=== PATIENT | female | born 1970 | race Caucasian/White ===

== ENCOUNTER 2016-12-08 19:23 | Emergency (ER) | payer MEDICAID ==
[2016-12-08 19:59] LABS: RBC URINE 6 /hpf (0-3); TRANSITIONAL EPITHIAL < 1 /hpf (0-3); URINE BACTERIA RARE (<OCC); URINE BILIRUBIN NEGATIVE (NEGATIVE); URINE BLOOD 1+ (NEGATIVE); URINE COLOR Yellow (YELLOW); URINE GLUCOSE (UA) NORMAL (Normal); URINE KETONE NEGATIVE (NEGATIVE); URINE LEUKOCYTE ESTERASE NEG Leu/uL (Negative); URINE PROTEIN NEGATIVE (NEGATIVE); URINE UROBILINOGEN NORMAL mg/dL (0.2-1.0); WBC URINE 2 /hpf (0-5)
[2016-12-08] MEDS ORDERED: Sodium Chloride 0.9% 1,000 ML IV ONE ×2 (19:59→23:41)
[2016-12-08] MEDS ORDERED: Sodium Chloride 0.9% 1,000 ML ONE ×2 (20:11→23:41)
[2016-12-08] MEDS ORDERED: Morphine 4 MG/ML VIAL ONE (20:12)
[2016-12-08 20:16] LABS: BASO % 0.5 % (0.0-2.0); EOS % 0.4 % (0.0-4.0); HEMATOCRIT 38.1 % (34.0-47.0); LYMPH # 1.7 K/uL (1.0-4.3); LYMPH % 41.7 % (20.0-40.0); MEAN CELL VOLUME 89.4 fL (81.0-99.0); MEAN CORPUSCULAR HEMOGLOBIN 29.7 pg (27.0-31.0); MEAN CORPUSCULAR HGB CONC 33.2 g/dL (33.0-37.0); MEAN PLATELET VOLUME 10.3 fL (7.2-11.7); MONO # 0.4 K/uL (0.0-0.8); MONO % 9.6 % (0.0-10.0); NRBC % 0.1 % (0.0-2.0); RED CELL DISTRIBUTION WIDTH 12.6 % (11.5-14.5)
[2016-12-08 20:25] LABS: CHLORIDE 104 mmol/L (98-107)
[2016-12-08 20:26] LABS: SODIUM 139 mmol/L (132-148)
[2016-12-08 20:29] LABS: ALB/GLOB RATIO 1.3 (1.0-2.1); ALKALINE PHOSPHATASE 35 U/L (38-126); ALT/SGPT 15 U/L (9-52); AST/SGOT 24 U/L (14-36); BILIRUBIN,TOTAL 0.8 mg/dL (0.2-1.3); BLOOD UREA NITROGEN 7 mg/dL (7-17); CARBON DIOXIDE 26 mmol/L (22-30); GFR AFRICAN-AMERICAN > 60; GLUCOSE,RANDOM 85 mg/dL (65-105); TOTAL PROTEIN 7.8 g/dL (6.3-8.3)
[2016-12-08 20:30] LABS: CALCIUM 9.6 mg/dl (8.6-10.4)
--- NOTE | 2016-12-08 22:44 | C.PDOC ---
History Of Present Illness 45 year old female presents to the ED with complaints of acute onset left flank pain radiating to the left groin. Patient states she is celebrating Ramadan and is fasting and does not drink water regularly. Patient denies any other physical complaints at this time. Time Seen by Provider: 12/08/16 19:56 Chief Complaint (Nursing): Abdominal Pain History Per: Patient History/Exam Limitations: no limitations Onset/Duration Of Symptoms: Hrs Current Symptoms Are (Timing): Still Present Location Of Pain/Discomfort: Other (Left flank radiating to left groin ) Radiation Of Pain To:: Other (left groin ) Quality Of Discomfort: "Pain" Associated Symptoms: denies: Fever, Chills, Nausea, Vomiting, Diarrhea Recent travel outside of the [place]: No Abnormal Vaginal Bleeding: No Past Medical History Reviewed: Historical Data, Nursing Documentation, Vital Signs Vital Signs: Last Vital Signs Temp 98.5 F 12/09/16 00:33 Pulse 75 12/09/16 00:33 Resp 16 12/09/16 00:33 BP 92/56 L 12/09/16 00:33 Pulse Ox 97 12/09/16 00:33 Family History: States: No Known Family Hx - Social History Hx Alcohol Use: No Hx Substance Use: No - Immunization History Hx Tetanus Toxoid Vaccination: No Hx Influenza Vaccination: No Hx Pneumococcal Vaccination: No Review Of Systems Constitutional: Negative for: Fever, Chills, Sweats Cardiovascular: Negative for: Chest Pain, Palpitations Respiratory: Negative for: Cough, Shortness of Breath Gastrointestinal: Positive for: Abdominal Pain (left flank pain ). Negative for : Nausea, Vomiting Musculoskeletal: Positive for: Other (left groin pain radiating from left flank pain ) Physical Exam - Physical Exam Appears: Non-toxic, No Acute Distress Skin: Warm, Dry Head: Atraumatic Oral Mucosa: Moist Neck: Supple Chest: Symmetrical, No Deformity Cardiovascular: Rhythm Regular Respiratory: No Rales, No Rhonchi, No Stridor, No Wheezing Gastrointestinal/Abdominal: Soft, Tenderness (tenderness to LLQ ), No Distention , No Guarding, No Rebound Extremity: Normal ROM, No Tenderness Neurological/Psych: Oriented x3 ED Course And Treatment - Laboratory Results Result Diagrams: 12/08/16 20:10 12/08/16 20:10 Lab Interpretation: Abnormal (+ few RBC's in urine) Urine POC: Negative O2 Sat by Pulse Oximetry: 100 (room air ) - Radiology CXR: Interpreted by Me CXR Interpretation: Yes: No Acute Disease - Other Rad abd x 2 X-Ray: Interpreted by Me (+ increased gas mod stool, no obst), Read By Radiologist - CT Scan/US CT ABDOMEN PELVIS W O PO OR IV CONT Other Rad Studies (CT/US): Read By Radiologist, Radiology Report Reviewed CT/US Interpretation: IMPRESSION: There is moderate hydronephrosis hydroureter of the left collecting system secondary to a partially. obstructing stone located in the left UVJ, 4 mm. No evidence for bowel herniation, bowel obstruction, colitis, appendicitis or diverticulitis. Progress Note: toradol, IVF, dilaudid IV Reevaluation Time: 00:36 Reassessment Condition: Improved Critical Care Time - Critical Care Note Total Time (in mins): 90 Documented critical care: time excludes all time spent performing seperately billable procedures. Medical Decision Making Medical Decision Making: poor water intake, Ramadan fasting, acute L flank to L groin pain, few RBC's in urine, c/w renal colic. Disposition Doctor Will See Patient In The: Office Counseled Patient/Family Regarding: Studies Performed, Diagnosis - Disposition Disposition: HOME/ ROUTINE Disposition Time: 00:37 Condition: GOOD - Clinical Impression Clinical Impression: Renal colic on left side - Scribe Statement The provider has reviewed the documentation as recorded by the Scribe Rae Mckenzie All medical record entries made by the [place]wood were at my direction and personally dictated by me. I have reviewed the chart and agree that the record accurately reflects my personal performance of the history, physical exam, medical decision making, and the department course for this patient. I have also personally directed, reviewed, and agree with the discharge instructions and disposition.
[2016-12-09] MEDS ORDERED: HYDROmorphone 0.5 mg/0.5 ml ISec IVP STA (00:11)
[2016-12-09] MEDS ORDERED: HYDROmorphone 1 mg/ml ISec ONE (00:15)
[2016-12-09 00:34] VITALS: BP 92/56; PULSE 75; RESP 16; TEMP 98.5
[2016-12-09 00:37] VITALS: O2SAT 100
--- NOTE | 2016-12-09 09:18 | RAD ---
Abdomen four views History: Abdominal pain. Comparison: None available. Findings: Lung bashir are clear. Bibasilar breast and nipple shadows. Distended and or mildly dilated loops of small bowel within the upper mid abdomen. Fecal retention in the colon. Impression: Nonspecific bowel gas pattern with a few distended and or mildly dilated loops of small bowel in the in the upper and mid abdomen. Fecal retention in the colon.
--- NOTE | 2016-12-09 09:39 | CT ---
PROCEDURE: CT Abdomen and Pelvis without intravenous contrast HISTORY: Left flank pain COMPARISON: None. TECHNIQUE: Multiple contiguous axial images were performed through the abdomen and pelvis without intravenous contrast. Subsequently, sagittal and coronal reformatted images were obtained. Radiation dose: Total exam DLP = two hundred nine mGy-cm. This CT exam was performed using one or more of the following dose reduction techniques: Automated exposure control, adjustment of the mA and/or kV according to patient size, and/or use of iterative reconstruction technique. FINDINGS: LOWER THORAX: Bibasilar atelectasis. LIVER: Unremarkable. No gross lesion or ductal dilatation. GALLBLADDER AND BILE DUCTS: Unremarkable. PANCREAS: Unremarkable. No gross lesion or ductal dilatation. SPLEEN: Unremarkable. ADRENALS: Unremarkable. No mass. KIDNEYS AND URETERS: Moderate left hydroureteronephrosis secondary to a partially obstructing calculus located the ureterovesicular junction measuring approximately 4 millimeters. Adjacent multiple calcified phleboliths in the pelvis. VASCULATURE: Unremarkable. No aortic aneurysm. BOWEL: Unremarkable. No obstruction. No gross mural thickening. Fecal retention in the colon. APPENDIX: Unremarkable. Normal appendix. PERITONEUM: Unremarkable. No free fluid. No free air. LYMPH NODES: Unremarkable. No enlarged lymph nodes. BLADDER: Decompressed urinary bladder. REPRODUCTIVE: Heterogeneous uterus with a suggestion of uterine and or cervical calcifications noted. BONES: No acute fracture. OTHER FINDINGS: Study limited by patient motion artifact. IMPRESSION: Moderate left hydroureteronephrosis secondary to a partially obstructing calculus measuring 4 millimeters at the ureterovesicular junction. Additional findings as above. These findings were preliminarily reported at 11:12 p.m. on 12/08/[address] Randall Barker from [employer].
== END 2016-12-09 00:52 | disposition home or self-care (01) ==
LOC: C.ER 19:23
DX: N13.2 Hydronephrosis with renal and ureteral calculous obstruction (principal)
CPT/HCPCS: 74022; 74176; 80053; 81001; 83690; 84703; 85025; 96361; 96374; 96375; 96376; 99285; J1170; J1885; J2270; J7040